=== PATIENT | female | born 1965 | race Caucasian/White ===

== ENCOUNTER 2025-05-28 15:23 | Inpatient (IN) | payer BC ==
[~2025-05-28] VITALS: Ht 165.1 cm; Wt 77.1 kg
[2025-05-28 15:52] LABS: PLATELET COUNT (AUTO) 355 K/uL (150-450); RED BLOOD CELL COUNT(AUTO) 4.11 MIL/uL (4.0-5.2); RED CELL DISTRIBUTION WIDTH 14.8 % (11.5-15.0); WHITE BLOOD COUNT (AUTO) 6.7 K/uL (4.3-11.0)
[2025-05-28 16:00] LABS: CALCIUM, SERUM 9.2 mg/dL (8.5-10.1); CREATININE 0.8 mg/dL (0.6-1.3); SODIUM SERUM 142 mmol/L (136-145); UREA NITROGEN, BLOOD 15 mg/dL (7-18)
[2025-05-28 16:14] LABS: ASPARTATE AMINOTRANSFERASE 8 U/L (15-37); NT-PRO BNP 37 pg/mL (0-125); TOTAL PROTEIN, SERUM 7.3 g/dL (6.4-8.2)
[2025-05-28] MEDS ORDERED: OLAN2.5T3 PO (16:45)
[2025-05-28] MEDS ORDERED: DIVA500T54 PO (16:45)
[2025-05-28] MEDS ORDERED: SERT50TA12 PO (16:45)
[2025-05-28 20:00] VITALS: BP_SYST 101; BP_SYST 102; BP_SYST 105; BP_DIAS 53; BP_DIAS 58; BP_DIAS 67; TEMP 97.9; O2SAT 96
[2025-05-28] MEDS ORDERED: Z GUARD REMEDY 4 OZ OINT TP PRN (20:00)
[2025-05-28] MEDS ORDERED: ACETAMINOPHEN 325 MG TABLET PO PRN (20:00)
[2025-05-28] MEDS: ENOXAPARIN SODIUM 40 MG/0.4 ML DISP.SYRIN SQ SCH (20:19)
[2025-05-28] MEDS: DIVALPROEX SODIUM 500 MG TABLET.DR PO SCH (20:19)
[2025-05-28] MEDS: IV NS 0.9% 1,000 ML IV PRN (20:54)
[2025-05-28] MEDS: ONDANSETRON HCL/PF 4 MG/2 ML VIAL IVP PRN (21:16)
[2025-05-29] VITALS: BP 114/69; TEMP 97.5; O2SAT 95
[2025-05-29 04:00] VITALS: BP 101/64; TEMP 97.7; O2SAT 96
[2025-05-29 08:00] VITALS: BP 103/58; TEMP 97.9; O2SAT 95
[2025-05-29] MEDS: OLANZAPINE 2.5 MG TABLET PO SCH (08:15)
[2025-05-29] MEDS: SERTRALINE HCL 50 MG TABLET PO SCH (08:15)
[2025-05-29] MEDS: PANTOPRAZOLE 40 MG TABLET.DR PO SCH (08:15)
[2025-05-29 09:51] LABS: PLATELET COUNT (AUTO) 319 K/uL (150-450); RED BLOOD CELL COUNT(AUTO) 3.77 MIL/uL (4.0-5.2); RED CELL DISTRIBUTION WIDTH 14.7 % (11.5-15.0); WHITE BLOOD COUNT (AUTO) 4.6 K/uL (4.3-11.0)
[2025-05-29 10:00] VITALS: BP_SYST 100; BP_SYST 95; BP_SYST 97; BP_DIAS 60; BP_DIAS 65; TEMP 97.9; O2SAT 95
[2025-05-29 10:08] LABS: CALCIUM, SERUM 8.1 mg/dL (8.5-10.1); CREATININE 0.9 mg/dL (0.6-1.3); PHOSPHORUS 3.8 mg/dL (2.5-4.9); SODIUM SERUM 142.0 mmol/L (136-145); UREA NITROGEN, BLOOD 16.0 mg/dL (7-18)
[2025-05-29 10:12] LABS: LDL 110.0 mg/dL (0-99); VALPROIC ACID 42.0 ug/mL (50-100)
[2025-05-29] MEDS ORDERED: MECLIZINE HCL 25 MG TABLET PO PRN (11:30)
[2025-05-29 12:09] VITALS: BP 101/57; TEMP 97.5; O2SAT 93
[2025-05-29 16:00] VITALS: BP 102/64; TEMP 98.1; O2SAT 99
== END 2025-05-29 18:20 | disposition home or self-care (01) | DRG 74 ==
LOC: ER 15:29 → TELE 18:01
PROVIDERS: ADMIT Nurse Practitioner Acute Care; ATTEND Nurse Practitioner Acute Care
DX: G90.89 Other disorders of autonomic nervous system (principal); F32.A Depression, unspecified; F41.9 Anxiety disorder, unspecified; V49.9XXA Car occupant (driver) (passenger) injured in unspecified traffic accident, initial encounter; Y92.410 Unspecified street and highway as the place of occurrence of the external cause; I49.3 Ventricular premature depolarization; Z79.899 Other long term (current) drug therapy
CPT/HCPCS: 36415; 70450-TC; 71045-TC; 72125-TC; 80048-TC; 80061-TC; 80076-TC; 80164-TC; 82962-TC; 83735-TC; 83880; 84100-TC; 84484-TC; 85025-TC; 93307-TC; 97112-TC; 97116-TC; 97530-TC; A4223; G0378; J1650; J2405; J7030